=== PATIENT | female | born 1970 | race Caucasian/White ===

== ENCOUNTER 2023-05-14 18:46 | Inpatient (IN) | payer BC, MEDICAID, SELFPAY ==
[2023-05-14 19:10] VITALS: BMI 20.9
[2023-05-14 19:12] VITALS: BP 134/92; PULSE 115; RESP 18; TEMP 36.8; O2SAT 95
--- NOTE | 2023-05-14 19:15 | PC.NURSE ---
Skin assessment: Lower abdominal midline scar, right posterior hip tattoo, pick maciel on anterior bilateral thighs, mosquito bite on right lateral ankle.
--- NOTE | 2023-05-14 20:00 | PC.NURSE ---
PT WAS A DIRECT ADMIT. PT IS EXPERIENCING SUICIDAL THOUGHTS AND DEPRESSION. PT STATED HERE THAT SHE IS CURRENTLY HEARING VOICES OF BULLIES . PT ALSO CURRENTLY ENDORSES DEPRESSION. PT HAS A HISTORY OF METH AND MARIJUANA ABUSE. PT STATES THAT SHE WAS AN IV USER AND THAT HER LAST USE WAS 4 DAYS AGO. PT CURRENTLY DENIES SI AND HI.
[2023-05-14] MEDS: gabapentin 400 mg Capsule 800 MG PO (20:22)
[2023-05-14] MEDS: risperiDONE 1 mg Tablet PO (20:22)
[2023-05-14 22:00] VITALS: BP 134/92; PULSE 115; RESP 18; TEMP 36.8; O2SAT 95
[2023-05-15 06:00] VITALS: BP 119/87; PULSE 71; RESP 18; TEMP 36.6; O2SAT 96; BMI 20.9
[2023-05-15] MEDS: gabapentin 400 mg Capsule 800 MG PO ×3 (08:51→19:55)
[2023-05-15] MEDS: risperiDONE 1 mg Tablet PO (08:51)
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
[2023-05-15] MEDS: LORazepam 1 mg Tablet PO ×2 (12:04→19:55)
[2023-05-15 14:00] VITALS: BP 109/76; PULSE 106; RESP 22; TEMP 37.4; O2SAT 96
[2023-05-15 20:08] VITALS: BP 108/72; PULSE 98; RESP 15; TEMP 36.8; O2SAT 95
[2023-05-16 06:00] VITALS: BP 118/73; PULSE 70; RESP 16; TEMP 36.6; O2SAT 99
[2023-05-16] MEDS: gabapentin 400 mg Capsule 800 MG PO ×3 (09:12→20:19)
[2023-05-16] MEDS: LORazepam 1 mg Tablet PO ×2 (09:12→14:17)
[2023-05-16] MEDS: paliperidone ER 3 mg Tablet PO (09:12)
[2023-05-16] MEDS: fluoxetine 20 mg Capsule PO (09:12)
--- NOTE | 2023-05-16 09:14 | PC.NURSE ---
Administered 1mg Ativan to patient for anxiety 05/24. Patient is aware that she only has two remaining doses. Patient tearful.
--- NOTE | 2023-05-16 09:32 | PC.NURSE ---
During morning assessment, patient tearful. Patient stated to this nurse that she feels as though she is going to get yelled at. Patient stated that this is related to past trauma. Patient reports anxiety 05/24 a d depression 05/24. Patient denies SI, HI, AVH.
[2023-05-16] MEDS: ondansetron 4 MG Tablet PO ×2 (10:22→17:43)
--- NOTE | 2023-05-16 10:23 | PC.NURSE ---
Patient reports upset stomach, nausea. Administered 4mg Zofran to patient. Will continue to monitor
[2023-05-16] MEDS: nicotine 2 mg Gum BUCCAL (11:36)
[2023-05-16 13:23] VITALS: BP 119/72; PULSE 92; RESP 14; TEMP 36.7; O2SAT 98
[2023-05-16] MEDS: flu vacc pf 2023-24 (6 mos+) 60 MCG IM (14:15)
--- NOTE | 2023-05-16 15:47 | P.NPUPN_ITS ---
Subjective NPU Subjective: Patient is a 53-year-old white female with a history of methamphetamine dependence and psychosis with a past history of PTSD admitted with suicidal ideation depression in the presence of several auditory hallucinations. She reported that the voices continue to be excessively loud. She had reported having considerable anxiety. She had stated that she had placed a plastic bag in her side of her ear in order to try to drown out the noise. She had continued to isolate herself on the milieu. She had reported that she had previously been on Valium to help with chronic anxiety. She was willing to get help with managing her methamphetamine consumption and abuse. She reported no worsening of hallucinations with the transition from Risperdal to Invega today. She had reported difficulties with falling asleep and considerable sleep continuity disruption.She reports continued nightmares and flashbacks regarding trauma. Mental Status Exam MSE Comments: Disheveled white female who appeared somewhat thin with poor hygiene and normal gait. There was no evidence of any abnormal involuntary motor movements appreciated. She appeared older than her stated age. There was evidence of psychomotor slowing and psychomotor retardation. Her thought process was linear logical and goal-directed. Her thought content showed no evidence of active homicidal ideation although she had endorsed suicidal ideation with no active plan. Her mood was described as depressed. Her affect was flat. Her speech was normal in regards to rate rhythm and prosody with no clear latency in speech noted. She had endorsed auditory hallucinations and denied any visual hallucinations. She did not appear to be responding to internal stimuli. Her attention span appeared adequate. She was alert and oriented to person place and time. Her insight is poor. Her judgment is poor. Her impulse control appeared limited. Vitals/I&O/Wt Last Vital Signs Temp 98.1 F 05/16/23 13:23 Pulse 92 05/16/23 13:23 Resp 14 05/16/23 13:23 BP 119/72 05/16/23 13:23 Pulse Ox 98 05/16/23 13:23 O2 Del Method Room Air 05/16/23 13:23 Weight last 48 hrs Weight 58.967 kg Weight 58.967 kg A&P Assessment and plan (1) Methamphetamine-induced psychotic disorder: (2) Depression, unspecified: (3) PTSD (post-traumatic stress disorder): (4) Suicidal ideation: Plan 53-year-old white female with a long history of methamphetamine abuse complaining of hallucinations along with depression in the context of suicidal ideation as well. 1. ?Encourage individual, group and milieu therapy. 2. Recommend sober living treatment at the highest level of care to which the patient is willing to commit. 3. Continue q-15 minute checks for safety.? 4. Continue Gabapentin 800mg tid, increase invega to 6mg at night. 5. Increase prozac to 40mg daily. 6. D/C ativan, add valium 5mg tid for anxiety. Involuntary Hold Information 96 Hour Hold: 96 Hour Involuntary Admission: No Attestations NPU Medical Necessity Statement*: Inpatient hospitalization is medically necessary and deemed to be the ?clinically appropriate intervention ?at this time.? We will monitor/initiate medications and make changes as indicated.? The patient's likely length of stay 5-7 days. Coding Level of Care Code Acute Code for [facility] Diagnoses Methamphetamine-induced psychotic disorder F15.959 Depression, unspecified F32.A PTSD (post-traumatic stress disorder) F43.10 Suicidal ideation R45.854
[2023-05-16] MEDS: nicotine 4 mg lozenge MUCOUS MEM (16:39)
[2023-05-16 17:08] VITALS: O2SAT 95
[2023-05-16] MEDS: blistex lip oint 7 gm Tube 1 APPLIC TOPICAL (17:14)
[2023-05-16] MEDS: diazePAM 5 mg Tablet PO (20:19)
[2023-05-16 20:33] VITALS: BP 113/82; PULSE 95; RESP 14; TEMP 36.4; O2SAT 97
[2023-05-17 06:00] VITALS: BP 111/76; PULSE 83; RESP 20; TEMP 36.8; O2SAT 96
[2023-05-17] MEDS: paliperidone ER 6 mg Tablet PO (08:49)
[2023-05-17] MEDS: fluoxetine 20 mg Capsule 40 MG PO (08:50)
[2023-05-17] MEDS: gabapentin 400 mg Capsule 800 MG PO ×2 (08:50→14:52)
[2023-05-17] MEDS: diazePAM 5 mg Tablet PO ×2 (08:50→14:52)
[2023-05-17] MEDS: ibuprofen 600 mg Tablet PO (10:16)
[2023-05-17] MEDS: nicotine 4 mg lozenge MUCOUS MEM (11:17)
[2023-05-17] MEDS: albuterol 2.5 mg/3 mL Neb INHALATION (11:58)
[2023-05-17 12:00] VITALS: PULSE 95; RESP 20; O2SAT 97
[2023-05-17 12:05] VITALS: PULSE 91
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
[2023-05-17 14:00] VITALS: BP 111/75; PULSE 94; RESP 16; TEMP 36.6; O2SAT 97
[2023-05-17 14:07] VITALS: BP 111/75; PULSE 94; RESP 16; TEMP 36.6; O2SAT 97
== END 2023-05-17 15:43 | disposition home or self-care (01) | DRG 897 ==
PROVIDERS: Admitting Provider Psychiatry & Neurology Psychiatry; Visit Provider Psychiatry & Neurology Psychiatry
DX: F15.251 Other stimulant dependence with stimulant-induced psychotic disorder with hallucinations (principal); R45.851 Suicidal ideations; Z59.00 Homelessness unspecified; R44.0 Auditory hallucinations; Z91.410 Personal history of adult physical and sexual abuse; Z62.819 Personal history of unspecified abuse in childhood; F17.210 Nicotine dependence, cigarettes, uncomplicated; F32.A Depression, unspecified; F41.9 Anxiety disorder, unspecified
CPT/HCPCS: 90471; 90686; 94640; 94664; 97150; 97165; J7613; Q0162